=== PATIENT | male | born 2005 | race Caucasian/White ===

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

== ENCOUNTER 2024-01-25 17:36 | Emergency (ER) | payer MEDICAID, SELFPAY ==
[2024-01-25 17:37] VITALS: BP 119/92; PULSE 102; TEMP 36.2; O2SAT 97; BMI 26.4
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
[2024-01-25 18:01] LABS: Basophils # 0.1 10^3/uL (0.0-0.1); Basophils % 0.6 %; Eosinophils # 0.6 10^3/uL (0.0-0.8); Eosinophils % 5.6 %; Lymphocytes # 1.9 10^3/uL (1.5-6.5); Lymphocytes % 19.3 %; Mean Corpuscular HGB Conc 34.2 g/dL (30-55); Mean Corpuscular Volume 87.6 fl (82-101); Mean Platelet Volume 9.9 fL (7.4-10.4); Monocytes # 0.7 10^3/uL (0.2-0.9); Monocytes % 6.7 %; Neutrophils # 6.72 10^3/uL (1.8-8.0); Neutrophils % 67.4 %; Nucleated Red Blood Cells % 0 %; Platelet Count 231 10^3/cmm (157-399); Red Blood Count 4.34 10^6/uL (3.85-5.65); Red Cell Distribution Width 13.2 % (12.1-15.1); White Blood Count 9.98 10^3/uL (4.5-13.0)
[2024-01-25] MEDS: tetanus-dipt-pertussis 0.5 mL SDV IM (18:02)
[2024-01-25 18:08] LABS: Add Urine Microscopic? NO; Charge for UA Resulting for Rev
[2024-01-25 18:14] VITALS: BP 128/75; PULSE 88; RESP 16; O2SAT 95
[2024-01-25 18:15] LABS: Bilirubin Urine Neg (Negative); Blood Urine Neg (Negative); Glucose Urine UA Norm (Normal); Ketones Urine Negative (Negative); Leukocyte Esterase Urine Negative (Negative); Nitrate Urine Negative (Negative); Protein Urine Neg (Negative); Urine Appearance Clear (CLEAR); Urine Color Yellow (Yellow); Urobilinogen Urine 1 mg/dL (Negative); pH Urine 6 (5-7)
[2024-01-25 18:19] LABS: Alanine Aminotransferase 14 U/L (0-41); Albumin Level 4.1 g/dL (3.5-5.2); Alkaline Phosphatase 83 U/L (40-130); Anion Gap 11.4 (5-19); Aspartate Amino Transferase 14 U/L (0-40); Blood Urea Nitrogen 11 mg/dL (6-20); Calcium 8.2 mg/dL (8.5-10.5); Carbon Dioxide 25 mmol/L (22-29); Chloride 109 mmol/L (98-107); Creatine Phosphokinase 91 U/L (39-308); Creatinine Clr Calc Pharmacy 265.5107; Glucose 65 mg/dL (65-115); Osmolality Calculated 292 mOsm/kg (285-295); Potassium 3.4 mmol/L (3.5-5.1); Sodium 142 mmol/L (136-145); Total Bilirubin 0.9 mg/dL (0.15-1.2); Total Protein 6.1 g/dL (6.6-8.7)
[2024-01-25 18:20] LABS: Lactic Sepsis W/Reflex 1.6 mmol/L (0.5-2.2)
[2024-01-25 19:04] VITALS: BP 119/57; PULSE 87; RESP 16; O2SAT 96
[2024-01-25 20:13] LABS: Amphetamines Screen Urine Negative (Negative); Barbiturates Screen Urine Negative (Negative); Benzodiazepines Screen Urine Negative (Negative); Cocaine Screen Urine Negative (Negative); Opiate Screen Urine Negative (Negative); PCP Screen Urine Negative (Negative); THC Screen Urine Positive (Negative)
[2024-01-25 20:25] LABS: Alcohol Level < 10 mg/dL (0-10)
[2024-01-25 20:32] VITALS: BP 128/58; PULSE 94; RESP 18; O2SAT 94
== END 2024-01-25 20:41 | disposition home or self-care (01) ==
PROVIDERS: Emergency Medicine; Emergency Provider Family Medicine
DX: R55 Syncope and collapse (principal); S01.83XA Puncture wound without foreign body of other part of head, initial encounter; V89.2XXA Person injured in unspecified motor-vehicle accident, traffic, initial encounter; Z23 Encounter for immunization
CPT/HCPCS: 70450; 80053; 80306; 80307; 81003; 82550; 83605; 85025; 90471; 90715; 99284

== ENCOUNTER 2024-01-27 11:27 | Emergency (ER) | payer MEDICAID, SELFPAY ==
[2024-01-27 11:28] VITALS: BP 119/79; PULSE 94; RESP 16; TEMP 36.7; O2SAT 99
[2024-01-27 11:45] VITALS: BP 122/74; PULSE 105; RESP 14; O2SAT 97
--- NOTE | 2024-01-27 11:52 | CT_ITS ---
WS: [id number] CT ABDOMEN PELVIS TECHNIQUE: Contrast-enhanced CT of the abdomen and pelvis with coronal and sagittal reformatted image s. CLINICAL INFORMATION: abdominal pain, bloody stools, no appetite; syncope COMPARISON: 05/27/2020 DLP: 589.[address] scans at [facility] use at least one of these dose optimization techniques: automated e xposure control; mA and/or kV adjustment per patient size (includes targeted exams where dose is matc hed to clinical indication); or iterative reconstruction. FINDINGS: Diffuse fatty infiltration of the liver. Normal portal vein and splenic vein. Normal spleen. Distende d stomach with food products and air-fluid level. Normal gallbladder. Normal pancreatic parenchymal enhancement. Normal spleen. Normal caliber abdomina l aorta. A few sigmoid diverticuli. No evidence of acute diverticulitis. Normal appendix in the RIGHT lower quadrant. Lung bases are well aerated. Adrenal glands are normal. No hydronephrosis in either kidney. Urine distended bladder. IMPRESSION: 1. Diffuse fatty infiltration of the liver. 2. Food products in distended stomach with air-fluid level. 3. No evidence of high-grade small or large bowel obstruction. 4. Sigmoid diverticulosis. No evidence of acute diverticulitis. 5. Normal appendix in the RIGHT lower quadrant.
--- NOTE | 2024-01-27 11:52 | ECG_ITS ---
[facility] Test Date: 2024-01-27 Pat Name: Tori Manzo Department: Room: Gender: Male Financial Analysis Manager: : 2005 Requested By: Magaly Milligan Order Number: [id number] Pablo MD: Aldo No M.D. Measurements Intervals [place] Rate: 75 P: 61 CT: 125 QRS: 74 QRSD: 97 T: 52 QT: 378 QTc: 425 Interpretive Statements SINUS RHYTHM WITH SINUS ARRHYTHMIA No previous ECG available for comparison Electronically Signed On 01-27-2024 18:03:33 PHYSICIAN PRACTICE COORDINATOR by Aldo No M.D. [id number]
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
--- NOTE | 2024-01-27 12:03 | PC.PHAR ---
pt state takes no rx or otc medications
[2024-01-27 12:13] LABS: Basophils # 0.1 10^3/uL (0.0-0.1); Basophils % 0.7 %; Eosinophils # 0.4 10^3/uL (0.0-0.8); Eosinophils % 5.1 %; Hematocrit 42.5 % (37-53); Lymphocytes # 1.8 10^3/uL (1.5-6.5); Lymphocytes % 22.9 %; Mean Corpuscular HGB Conc 34.1 g/dL (30-55); Mean Corpuscular Hemoglobin 29.1 pg (27-33); Mean Corpuscular Volume 85.3 fl (82-101); Mean Platelet Volume 9.7 fL (7.4-10.4); Monocytes # 0.3 10^3/uL (0.2-0.9); Monocytes % 3.6 %; Neutrophils # 5.18 10^3/uL (1.8-8.0); Neutrophils % 67.4 %; Nucleated Red Blood Cells % 0 %; Platelet Count 260 10^3/cmm (157-399); Red Blood Count 4.98 10^6/uL (3.85-5.65); Red Cell Distribution Width 13.1 % (12.1-15.1); White Blood Count 7.68 10^3/uL (4.5-13.0)
[2024-01-27] MEDS: sodium chloride 0.9% 1,000 ML 999 ML IV (12:16)
[2024-01-27] MEDS: iohexol 350 mg/mL 500 mL Btl (per mL) IV (12:25)
[2024-01-27 12:29] LABS: Alanine Aminotransferase 18 U/L (0-41); Albumin Level 4.7 g/dL (3.5-5.2); Alkaline Phosphatase 104 U/L (40-130); Blood Urea Nitrogen 12 mg/dL (6-20); Calcium 9.6 mg/dL (8.5-10.5); Carbon Dioxide 26 mmol/L (22-29); Chloride 98 mmol/L (98-107); Creatinine Clr Calc Pharmacy 189.6505; Glomerular Filtration Rate 143.8 mL/min (90-130); Glucose 147 mg/dL (65-115); Osmolality Calculated 286 mOsm/kg (285-295); Sodium 137 mmol/L (136-145); Total Bilirubin 1.8 mg/dL (0.15-1.2); Total Protein 7.7 g/dL (6.6-8.7)
[2024-01-27 12:34] LABS: Anion Gap 16.9 (5-19); Aspartate Amino Transferase 20 U/L (0-40); Potassium 3.9 mmol/L (3.5-5.1)
[2024-01-27 12:37] VITALS: BP 101/67; BP 109/69; BP 111/68; PULSE 104; PULSE 113; PULSE 96
[2024-01-27 12:57] VITALS: BP 101/67; PULSE 89; RESP 18; O2SAT 96
[2024-01-27] MEDS: levETIRAcetam 1,000 MG/100 ML PREMIX 400 MG IV (13:10)
[2024-01-27 13:15] VITALS: BP 123/75; PULSE 105; RESP 17; O2SAT 97
[2024-01-27 13:36] VITALS: BP 123/75; PULSE 105; RESP 17; TEMP 36.7; O2SAT 97
--- NOTE | 2024-01-30 07:15 | DCPLANNER ---
A message was sent to [facility] on 01/30/24 at 0715. [facility] to contact patient for an appt
== END 2024-01-27 13:37 | disposition home or self-care (01) ==
PROVIDERS: Emergency Provider Physician Assistant
DX: R56.9 Unspecified convulsions (principal)
CPT/HCPCS: 36415; 74177; 80053; 85025; 93005; 96365; 99285; J1953; J7030; Q9967

== ENCOUNTER 2024-02-20 10:34 | Emergency (ER) | payer MEDICAID, SELFPAY ==
[2024-02-20 10:42] VITALS: BP 130/75; PULSE 90; RESP 16; TEMP 36.7; O2SAT 97; BMI 26.4
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
[2024-02-20 12:05] VITALS: PULSE 79; O2SAT 97
[2024-02-20 12:21] LABS: Amphetamines Screen Urine Negative (Negative); Barbiturates Screen Urine Negative (Negative); Benzodiazepines Screen Urine Negative (Negative); Cocaine Screen Urine Negative (Negative); Opiate Screen Urine Negative (Negative); PCP Screen Urine Negative (Negative); THC Screen Urine Negative (Negative)
[2024-02-20 12:35] VITALS: PULSE 90; O2SAT 100
== END 2024-02-20 12:36 | disposition home or self-care (01) ==
PROVIDERS: Emergency Provider Physician Assistant
DX: Z03.6 Encounter for observation for suspected toxic effect from ingested substance ruled out (principal)
CPT/HCPCS: 80306; 99283

== ENCOUNTER 2024-03-12 09:06 | Outpatient (CLI) | payer MEDICAID, SELFPAY ==
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
== END 2024-03-12 09:07 | disposition home or self-care (01) ==
LOC: RAD 09:06
PROVIDERS: Visit Provider Specialist
DX: R56.9 Unspecified convulsions (principal)
CPT/HCPCS: 70551

== ENCOUNTER 2025-02-17 10:49 | Emergency (ER) | payer MEDICAID, SELFPAY ==
[2025-02-17 10:49] VITALS: BP 105/67; PULSE 83; TEMP 36.7; O2SAT 97; BMI 34.4
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
--- NOTE | 2025-02-17 10:55 | ECG_ITS ---
[facility] 2025[facility]17 Pat Name: Tori Manzo Department: Room: Gender: Male Insulation Foreman: : 2005 Requested By: Bipin Booth Order Number: [id number] Reading MD: Measurements Intervals [place] Rate: 76 P: 35 SD: 127 QRS: 52 QRSD: 99 T: 48 QT: 368 QTc: 416 Interpretive Statements SINUS RHYTHM INTERPRETATION BASED ON A DEFAULT AGE OF 40 YEARS No previous ECG available for comparison [email or web address]
[2025-02-17 11:21] LABS: Basophils # 0.1 10^3/uL (0.0-0.1); Basophils % 0.8 %; Eosinophils # 0.5 10^3/uL (0.0-0.8); Eosinophils % 6.7 %; Hematocrit 44.7 % (37-53); Lymphocytes # 2.2 10^3/uL (0.8-4.8); Mean Corpuscular Hemoglobin 29.1 pg (27-33); Mean Corpuscular Volume 85.5 fl (82-101); Mean Platelet Volume 10.2 fL (7.4-10.4); Monocytes # 0.5 10^3/uL (0.2-0.9); Monocytes % 7.2 %; Neutrophils # 3.84 10^3/uL (1.8-7.7); Nucleated Red Blood Cells % 0 %; Platelet Count 254 10^3/cmm (157-399); Red Blood Count 5.23 10^6/uL (3.85-5.65); Red Cell Distribution Width 12.7 % (12.1-15.1); White Blood Count 7.12 10^3/uL (3.29-11.43)
[2025-02-17 11:31] VITALS: BP 100/86; PULSE 81; RESP 16; O2SAT 98
[2025-02-17 11:37] LABS: Alanine Aminotransferase 113 U/L (0-41); Albumin Level 4.7 g/dL (3.5-5.2); Alkaline Phosphatase 89 U/L (40-130); Anion Gap 13.9 (5-19); Aspartate Amino Transferase 49 U/L (0-40); Blood Urea Nitrogen 11 mg/dL (6-20); Calcium 9.5 mg/dL (8.5-10.5); Carbon Dioxide 24 mmol/L (22-29); Chloride 105 mmol/L (98-107); Globulin 2.4 g/dL (1.3-4.6); Glomerular Filtration Rate 120.9 mL/min (90-130); Glucose 107 mg/dL (65-115); Osmolality Calculated 288 mOsm/kg (285-295); Potassium 3.9 mmol/L (3.5-5.1); Sodium 139 mmol/L (136-145); Total Bilirubin 0.6 mg/dL (0.15-1.2); Total Protein 7.1 g/dL (6.6-8.7)
--- NOTE | 2025-02-17 11:40 | W.ED.CHESTPA ---
HPI - Chest Pain General: Chief Complaint: Chest Pain Stated Complaint: chest pain Time Seen by Provider: 02/17/25 11:23 History of Present Illness: Patient having left-sided chest pain and neck pain for the last 24+ hours off and on. Patient is not having either of these pains currently. Within the last week patient's PCP had routine labs they said there his cholesterol was really high they put him on atorvastatin 20 mg. Patient has been taking it as directed. Patient is never taken it before patient denies any overall muscle aches in his arms or legs. No fever or chills. No shortness of breath diaphoresis. Related Data Home Medications ?Medication ?Instructions ?Recorded ?Confirmed atorvastatin 20 mg tablet 20 mg PO QPM 02/17/25 02/17/25 Previous Rx's ?Medication ?Instructions ?Recorded levetiracetam 750 mg 1,500 mg (2 x 750 mg) PO DAILY 06/08/24 tablet,extended release 24 hr #180 tabs (Keppra XR) Allergies Allergy/AdvReac Type Severity Reaction Status Date / Time No Known Allergies Allergy Verified 02/17/25 11:01 Review of Systems General: Reports: 10 or more systems reviewed and unremarkable except in HPI and below PFSH ED PFSH: Medical History Nicotine dependence due to vaping tobacco product Methamphetamine use disorder, severe, in early remission, dependence Generalized anxiety disorder Psychiatric care Social History Smoking and tobacco/nicotine status: never used tobacco/nicotine Alcohol intake: never Substance/Drug Use: current Substance/Drug use frequency: few times a week Physical Exam Const: COMMON NORMALS: no acute distress, average body habitus, patient oriented x3, no limitations, healthy appearing, alert and well nourished HENMT: COMMON NORMALS: normocephalic, atraumatic, hearing grossly normal bilaterally, external ears normal, Normal external nose present, moist oral mucous membranes and oropharynx normal HEAD & SCALP: normocephalic and atraumatic NOSE: Normal external nose present EXTERNAL EAR: Yes external ears normal Neck/C-Spine: COMMON NORMALS: full ROM, no lymphadenopathy, supple, no meningeal signs, no JVD and Thyroid normal THYROID: Thyroid normal Chest: COMMONS NORMALS: normal inspection of the chest and normal palpation of entire chest wall Resp: COMMON NORMALS: normal respiratory effort, No retractions, No use of accessory muscles and clear to auscultation bilaterally AUSCULTATION: clear to auscultation bilaterally Cardio: COMMON NORMALS: no JVD, regular rate, regular rhythm, S1 normal heart sound present, S2 normal heart sound present, No gallops present (Cardio), No clicks present (Cardio), No murmurs present (Cardio) and No rub (Cardio) RATE: regular rate RHYTHM: regular rhythm HEART SOUNDS: S1 normal heart sound present and S2 normal heart sound present GI: COMMON NORMALS: Normal to inspection, nondistended, normoactive bowel sounds present, Soft to palpation, non-tender, No hepatosplenomegaly present and no masses PALPATION: Yes Soft to palpation and Yes No hepatosplenomegaly present Neuro: COMMON NORMALS: patient oriented x3 SENSORIUM/ORIENTATION: Yes alert MENINGEAL SIGNS: Yes no meningeal signs Course Vital Signs: Vital signs: Vital Signs Temperature 98.1 F 02/17/25 10:49 Pulse Rate 83 02/17/25 10:49 Blood Pressure 105/67 02/17/25 10:49 Pulse Oximetry 97 02/17/25 10:49 Oxygen Delivery Me thod Room Air 02/17/25 10:49 MDM - Chest Pain Medical Decision Making Evaluation was negative other than mildly elevated liver enzymes of AST 49 ALT 113 bilirubin 0.6, these results was discussed with the patient. Patient be discharged home to follow-up with her PCP. Medical Records I reviewed the patient's medical records. Lab Data I reviewed the patient's lab results. 02/17/25 11:14 02/17/25 11:14 Radiology Impressions Chest X-Ray 02/17/25 10:53 IMPRESSION: No acute findings seen of the chest. Laboratory Results WBC 7.12 10^3/uL (3.29-11.43) 02/17/25 11:14 RBC 5.23 10^6/uL (3.85-5.65) 02/17/25 11:14 Hgb 15.20 g/dL (11.27-16.99) 02/17/25 11:14 Hct 44.7 % (37-53) 02/17/25 11:14 MCV 85.5 fl (82-101) 02/17/25 11:14 MCH 29.1 pg (27-33) 02/17/25 11:14 MCHC 34.0 g/dL (30-55) 02/17/25 11:14 RDW 12.7 % (12.1-15.1) 02/17/25 11:14 Plt Count 254 10^3/cmm (157-399) 02/17/25 11:14 MPV 10.2 fL (7.4-10.4) 02/17/25 11:14 Neut % (Auto) 54.0 % 02/17/25 11:14 Lymph % (Auto) 31.0 % 02/17/25 11:14 [place] % (Auto) 7.2 % 02/17/25 11:14 Eos % (Auto) 6.7 % 02/17/25 11:14 Baso % (Auto) 0.8 % 02/17/25 11:14 Neut # (Auto) 3.84 10^3/uL (1.8-7.7) 02/17/25 11:14 Lymph # (Auto) 2.2 10^3/uL (0.8-4.8) 02/17/25 11:14 [place] # (Auto) 0.5 10^3/uL (0.2-0.9) 02/17/25 11:14 Eos # (Auto) 0.5 10^3/uL (0.0-0.8) 02/17/25 11:14 Baso # (Auto) 0.1 10^3/uL (0.0-0.1) 02/17/25 11:14 Nucleated RBC % (auto) 0 % 02/17/25 11:14 Nucleated RBCs # 0.0 /100WBC 02/17/25 11:14 Sodium 139 mmol/L (136-145) 02/17/25 11:14 Potassium 3.9 mmol/L (3.5-5.1) 02/17/25 11:14 Chloride 105 mmol/L (98-107) 02/17/25 11:14 Carbon Dioxide 24 mmol/L (22-29) 02/17/25 11:14 Anion Gap 13.9 (5-19) 02/17/25 11:14 BUN 11 mg/dL (6-20) 02/17/25 11:14 Creatinine 0.8 mg/dL (0.7-1.2) 02/17/25 11:14 GFR Calculation 120.9 mL/min (90-130) 02/17/25 11:14 Glucose 107 mg/dL (65-115) 02/17/25 11:14 Calculated Osmolality 288 mOsm/kg (285-295) 02/17/25 11:14 Calcium 9.5 mg/dL (8.5-10.5) 02/17/25 11:14 Total Bilirubin 0.6 mg/dL (0.15-1.2) 02/17/25 11:14 AST 49 U/L (0-40) H 02/17/25 11:14 ALT 113 U/L (0-41) H 02/17/25 11:14 Alkaline Phosphatase 89 U/L (40-130) 02/17/25 11:14 Troponin T Baseline < 6 ng/L (0-15) 02/17/25 11:14 Troponin T 120 Minute 6.97 ng/L (0-15) 02/17/25 13:14 Delta Troponin T 0.30912 ABS# (0-10) 02/17/25 13:14 Total Protein 7.1 g/dL (6.6-8.7) 02/17/25 11:14 Albumin 4.7 g/dL (3.5-5.2) 02/17/25 11:14 Globulin 2.4 g/dL (1.3-4.6) 02/17/25 11:14 All radiology interpretation(s) finalized by discharge Discharge Plan Discharge Patient Disposition: Home Clinical Impression: Atypical chest pain Condition: Stable Prescriptions: No Action levetiracetam [Keppra XR] 750 mg tablet extended release 24 hr 1,500 mg PO DAILY Qty: 180 3RF atorvastatin 20 mg tablet 20 mg PO QPM Discharge Orders: Discharge ED (Routine); Ordered 02/17/25 Ordered By: Bipin Booth Patient Instructions: Chest Pain - Noncardiac Activity Restrictions/Additional Instructions: Thank you for choosing [facility] for your healthcare needs today. Please realize that you were seen in the emergency department and that we are providing you with an emergency medical screening exam and this may not be a complete and all exclusive of all testing and/or medical workup we may need to determine your element or severity of your illness. It is very important that you follow-up as instructed with your primary care provider or specialist for the additional evaluation and to discuss your medical treatment plan. You may return to the emergency department should you have concerns or if your condition changes or worsens in any way. Print Language: Uzbek Coding Level of Care Code ED Boxer Operator for Tammy Ledezma
[2025-02-17 11:42] LABS: Troponin(5th) Baseline < 6 ng/L (0-15)
[2025-02-17 12:01] VITALS: BP 107/85; PULSE 72; RESP 19; O2SAT 97
--- NOTE | 2025-02-17 12:04 | ECG_ITS ---
[facility] Test Date: 2025-02-17 Pat Name: Tori Manzo Department: Room: Gender: Male Radiology Tech: : 2005 Requested By: Bipin Booth Order Number: [id number] Reading MD: Measurements Intervals [place] Rate: 62 P: 25 WI: 139 QRS: 71 QRSD: 93 T: 14 QT: 405 QTc: 414 Interpretive Statements SINUS RHYTHM WITH OCCASIONAL VENTRICULAR PREMATURE COMPLEXES [email or web address]
[2025-02-17 12:31] VITALS: BP 118/76; PULSE 66; RESP 14; O2SAT 95
[2025-02-17 13:01] VITALS: PULSE 74; RESP 18; O2SAT 100
[2025-02-17 13:56] LABS: Troponin 5 2HR 6.97 ng/L (0-15)
[2025-02-17 14:31] VITALS: BP 150/78; PULSE 68; O2SAT 97
== END 2025-02-17 14:31 | disposition home or self-care (01) ==
PROVIDERS: Emergency Provider Emergency Medicine
DX: R07.89 Other chest pain (principal)
CPT/HCPCS: 36415; 71045; 80053; 84484; 85025; 93005; 99285

== ENCOUNTER 2025-08-15 10:19 | Emergency (ER) | payer MEDICAID, SELFPAY ==
--- OUTSIDE RECORDS SUMMARY | 2016-06-25 09:20 | XMS_ITS | Continuity of Care Document ---
Author Organization [facility] Address [address] [id number] [address] Phone Care Team Providers Care Car Rental Clerk Name Role Phone Joelle CUMMINSC, CAQ-Psych, Jaida Unavailable Unavailable Allergies, Adverse Reactions, Alerts Substance Reaction Status Criticality No Known Allergies Active No Inform ation Medications Medication Instructions Dosage Effective Dates (start - stop) Status Comments Trileptal 150 mg tablet take 1 tablet by oral route 2 times every day 150 MG - Active Lexapro 10 mg tablet take 1 tablet by or al route every day 10 MG - Active Abilify 2 mg tablet Take one tablet by mouth twice daily - Active Zyrtec 10 mg tablet take 1 tablet by ora l route every day 10 MG - Active Procedures Procedure Date OFFICE/OUTPATIENT VISIT, [facility] Advance Directives Directive Yes / No Effective Date File Name No Information Encounters Encounter Description Practice Location Reason(s) For Visit Diagnoses Date Provider Providers Copied on Encounter OFFICE/OUTPAT IENT VISIT, [facility], [id number], [id number], [place] tel:[phone] [facility] (chief complaint)D epression (chief complaint) Oppositional Defiant Disorder Joelle Sena. [address] [facility], [place], [id number], [place]. tel:[phone] Referring Provider: Jaida Chaparro, [address] [facility] [place], [address] . tel:[phone] Family History Family Member Type Diagnosis Age At Onset No Information Payers Payer name Insurance type Covered alliance party ID Shannan Rivers (s) [place] Medicaid MC [id number] Social History Type Description Quantity Date Captured Comments Alcohol Use Details No Caffeine Use Details soda 8 oz per day Tobacco Use Status Never smoked tobacco 2015 Smoking Status Never smoker Non-Smoking Tobacco Use Details : No Details Available : No Details Available Sex Male Vital Signs Date / Time: Height Weight BMI Pulse Rate Blood Pressure Temperature Respiratory Rate Body Surface Area Head Circumference Head Circ. Percentile Wt./Fidel. Percentile BMI percentile Pulse Ox Inhaled Ox 2:39 PM 62.50 in 74.117 kg (163.40 lbs) 29.4 1 kg/m eter (2) 70 /min 103/67 mm[Hg] 97.20 F 18 /min 1.81 meter(2) 98 99 % Chief Complaint And Reason For Visit From encounter dated '06/25/2016 14:20'. Establish care (chief complaint) Depression (chief complaint). Description: Associated symptoms include difficulty concentrating, fatigue and restlessness. Additional information: PHQ 14 Mom reports incident at home, pt took norco script from mom and gave to a friend, pt felt guilt and had increase in shutting down" and agitation. Hx of lying and steeling, has been to [facility] 2 times, has supervisor yard and was in c ounceling but needing new councelor. Reason For Referral Reason For Referral No Information Plan Of Treatment Date Type Action Status Referral Ordered: Referrals: Location: [facility] ordered History Of Present Illness Encounter Date Complaint History Of Prese nt Illness Establish care Depression Associated sympt oms include difficulty concentrating, fatigue and restlessness. Additional information: PHQ 14 Mom reports incident at home, pt took norco script from mom and gave to a friend, pt felt guilt and had increase in shutting down and agitation. Hx of lying and steeling, has been to [facility] 2 times, has supervisor yard and was in counceling but needing new councelor. Functional Status Date Functional Assessmen t Pain Score 0/10 Instructions Date Instruction Additional Infor enrico Continue current med ication regimen. Discussed need for psychiatry referral to evaluate and make med changes if needed due to pts age and complexity of diagnosis being outside scope of family medicine practice. Pt and parent expressed understanding. Counceled pt on the change of going back to school increasing anxiety symptoms and coping skills including importance of talking to a responsible adult about his feelings and thoughts. Pt expressed understanding. Pt met with [facility] today for coordination of counceling and psychiatry referrals. Related to Oppositional Defiant Disorder Mental health care education Rel ated to Oppositional Defiant Disorder Assessments Type Assessment Date assessment Oppositional Defiant Disorder Au Patient Care Teams Name Effective Dates (start - stop) Status Members No Information
[2025-08-15 10:20] VITALS: BP 109/74; PULSE 88; RESP 16; TEMP 36.7; O2SAT 98
--- NOTE | 2025-08-15 10:29 | W.ED.DENTAL ---
HPI - Dental/Oral General: Chief complaint: Dental/Oral Stated complaint: dental rt bottom Time Seen by Provider: 08/15/25 10:29 History of Present Illness: 20-year-old male presents emergency room with complaint of numbness on the lower portion of his face only on the right side. He recently was seen by dentist had multiple dental infections including on the maxillary portion on the right and he has been started on Augmentin which he currently is taking. He has no pain he has no fever sweats chills no injury no other neurologic deficits. Related Data Home Medications ?Medication ?Instructions ?Recorded ?Confirmed atorvastatin 20 mg tablet 20 mg PO QPM 02/17/25 02/17/25 Previous Rx's ?Medication ?Instructions ?Recorded levetiracetam 750 mg 1,500 mg (2 x 750 mg) PO DAILY 06/08/24 tablet,extended release 24 hr #180 tabs (Keppra XR) methylprednisolone 4 mg tablets in See Rx Instructions PO .COMPLEX 08/15/25 a dose pack (Medrol (Canelo)) #21 ea Allergies Allergy/AdvReac Type Severity Reaction Status Date / Time No Known Allergies Allergy Verified 02/17/25 11:01 [facility] ED [facility]: Medical History Nicotine dependence due to vaping tobacco product Methamphetamine use disorder, severe, in early remission, dependence Generalized anxiety disorder Social History Smoking and tobacco/nicotine status: never used tobacco/nicotine Alcohol intake: never Substance/Drug Use: current Substance/Drug use frequency: few times a week Physical Exam Neuro: OTHER: Diminished sensation in the V2 V3 branches of the right facial nerve Course Vital Signs: Vital signs: Vital Signs Temperature 98.1 F 08/15/25 10:20 Pulse Rate 81 08/15/25 11:08 Respiratory Rate 16 08/15/25 10:20 Blood Pressure 104/71 08/15/25 11:08 Pulse Oximetry 97 08/15/25 11:08 Oxygen Delivery Me thod Room Air 08/15/25 10:20 MDM - Dental/Oral Medical Decision Making Believe patient does have dental infection that is causing irritation and facial nerve palsy now. There is no sign of zoster no sign of systemic infection no submandibular swelling or fullness he has not tenderness mass. Will discharge patient home continue antibiotics. Also started a course of steroids have him follow-up with his primary care doctor. No radiology studies performed this visit Discharge Plan Discharge Patient Disposition: Home Clinical Impression: Facial nerve palsy, Dental caries Condition: Stable Prescriptions: New methylprednisolone [Medrol (Canelo)] 4 mg tablets,dose pack See Rx Instructions .ROUTE .COMPLEX Qty: 21 0RF Rx Instructions: orally per package directions No Action levetiracetam [Keppra XR] 750 mg tablet extended release 24 hr 1,500 mg PO DAILY Qty: 180 3RF atorvastatin 20 mg tablet 20 mg PO QPM Discharge Orders: Discharge ED (Routine); Ordered 08/15/25 Ordered By: Logan Zayas Discharge Diet: Usual diet Discharge Activity: Resume usual activity Patient Instructions: Opioid Safety, Pain Management, Patient Portal & Iram Instructions Activity Restrictions/Additional Instructions: Thank you for choosing [facility] for your healthcare needs today. It is very important that you follow up as instructed or that you return to the Emergency Department should you have concerns or if your condition changes or worsens in any way. Emergency department visits are focused on emergent conditions, in some cases you may require further evaluation on an outpatient basis. You were seen in the emergency room with complaints of numbness on an isolated portion of your face. The area of concern matches branches of the facial nerve. Suspect this is related to the dental infection you are currently dealing with. Continue your antibiotics. Will put you on a short course of steroids if persist follow-up with your primary care doctor (Please note that included in your discharge packet is information concerning opioid safety and pain management. This information is given to all patients were discharged from the ER regardless of their discharge diagnosis or the medicines they usually take or are prescribed.) Print Language: Luxembourger Coding Level of Care Code ED Electroplating Technician for Tammy Ledezma
[2025-08-15 11:08] VITALS: BP 104/71; PULSE 81; O2SAT 97
--- OUTSIDE RECORDS SUMMARY | 2025-08-15 11:11 | XMS_ITS | Clinical Summary ---
Author Organization [facility] [place] Address [address] [address] Care Team Providers Care Dyer And Washer Name Role Phone Consuelo Esquivel DO Primary Care Provide r Unavailable Allergies No known active allergies Medications guanFACINE (INTUNIV) 2 mg Extended Release 24 hour tabletIndications: Elevated blood sugar,Attention deficit hyperactivity disorder (ADHD), unspecified ADHD type Take 2 mg by mouth daily. Active lamoTRIgine (LAMICTAL) 100 mg tablet Take 100 mg by mouth daily. Active Active Problems Problem Noted Date Diagnosed Date ADHD (attention deficit hyperactivity disorder) 03/18/2015 Family History Medical History Relation Name Comments Healthy Brother Healthy Father Heart Disease Maternal Grandfather Heart Disease Maternal Grandmother High Cholesterol Maternal Grandmother Hypertension Maternal Grandmother Depression Mother Hypertension Paternal Grandfather Healthy Paternal Grandmother Relation Name Status Comments Brother Alive Father Alive Maternal Grandfather Alive Maternal Grandmother Alive Mother Alive Paternal Grandfather Alive Paternal Grandmother Alive Social History Tobacco Use Types Packs/Day Years Used Date Smoking Tobacco: Never Smokeless Tobacco: Never Alcohol Use Standard Drinks/Week Comments No 0 (1 standard drink = 0.6 oz pur e alcohol) Sex and Gender Information Value Date Recorded Sex Assigned at Not on file Legal Sex Male 12:30 PM CDT Gender Identity Not on file Sexual Orientation Not on file Last Filed Vital Signs Vital Sign Reading Time Taken Comments Blood Pressure 98/58 07/07/2015 10:08 AM CDT Pulse 80 07/07/2015 10:08 AM CDT Temperature 36.3 C (97.3 F) 07/07/2015 10:08 AM CDT Respiratory Rate - - Oxygen Saturation 97% 07/07/2015 10:08 AM CDT Inhaled Oxygen Concentration - - Weight 59.4 kg (131 lb) 07/07/2015 10:08 AM CDT Height 157.5 cm (5' 2 ) 07/07/2015 10:08 AM CDT Body Mass Index 23.96 07/07/2015 10:08 AM CDT Plan of Treatment Health Maintenance Due Date Last Done Comments HPV VACCINES (1 - Male 3-dose series) 2018 DTAP/TDAP/TD VACCINES (1 - Tdap) 2022 HEPATITIS B VACCINES (1 of 3 - 19+ 3-dose series) 01/20 INFLUENZA VACCINE (#1) 2025 Insurance MEDICAID [place] Care Teams Dyer And Washer Relationship Specialty Start Date End Date Consuelo Esquivel DO PCP - General Family Practice 03/18/15
--- OUTSIDE RECORDS SUMMARY | 2025-08-15 11:11 | XMS_ITS | Clinical Summary ---
Author Organization [facility] Address [address] Attn: Epic Prelude ADT [place] [id number] Care Team Providers Care Mapping Analyst Name Role Phone Alvin Consueloyenni Gamboa DO Primary Care Provide r Unavailable Allergies No known active allergies Medications guanFACINE (INTUNIV) 2 mg Extended Release 24 hour tabletIndications: Elevated blood sugar,Attention deficit hyperactivity disorder (ADHD), unspecified ADHD type Take 2 mg by mouth daily. 03/18/2015 Active lamoTRIgine (LaMICtal) 100 mg tablet Take 100 mg by mouth daily. 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
== END 2025-08-15 11:09 | disposition home or self-care (01) ==
PROVIDERS: Emergency Provider Family Medicine
DX: G51.0 Bell's palsy (principal); K02.9 Dental caries, unspecified
CPT/HCPCS: 99283